=== PATIENT | female | born 2000 | race Caucasian/White ===

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

== ENCOUNTER 2022-02-24 13:59 | Outpatient (CLI) | payer MEDICAID ==
[2022-02-24 19:48] LABS: BASOPHILS % (AUTO) 0.4 %; EOSINOPHILS # (AUTO) 0.1 10^3/uL (0.0-0.7); EOSINOPHILS % (AUTO) 0.9 %; HCT - HEMATOCRIT 42.9 % (37.0-47.0); HGB - HEMOGLOBIN 12.8 g/dL (12.0-16.0); LYMPHOCYTES # (AUTO) 2.5 10^3/uL (1.5-3.5); LYMPHOCYTES % (AUTO) 36.2 %; MEAN CORPUSCULAR HEMOGLOBIN 26.6 pg (27.0-31.0); MEAN CORPUSCULAR HGB CONC 29.8 g/dL (32.0-36.0); MEAN CORPUSCULAR VOLUME 89.2 fL (81.0-99.0); MEAN PLATELET VOLUME 11.7 fL (7.9-10.8); MONOCYTES # (AUTO) 0.3 10^3/uL (0.0-1.0); MONOCYTES % (AUTO) 4.6 %; NEUTROPHILS % (AUTO) 57.8 %; PLT - PLATELET COUNT 227 10^3/uL (130-450); RED BLOOD COUNT 4.81 10^6/uL (4.20-5.40); RED CELL DISTRIBUTION WIDTH 11.9 % (12.0-15.0)
[2022-02-24 19:57] LABS: ALBUMIN 4.9 g/dL (3.2-5.5); ALBUMIN/GLOBULIN RATIO 1.8 (1.0-2.2); BILIRUBIN,TOTAL 0.8 mg/dL (0.2-1.0); CALCIUM 11.2 mg/dL (8.5-10.3); CREATININE 0.7 mg/dL (0.4-1.0); POTASSIUM 3.6 mmol/L (3.5-5.0); TOTAL PROTEIN 7.6 g/dL (6.7-8.2)
[2022-02-24 20:15] LABS: THYROID STIMULATING HORMONE 1.61 uIU/mL (0.34-5.60)
[2022-02-24 20:16] LABS: FREE T3 3.44 pg/mL (2.5-3.9)
[2022-02-24 20:17] LABS: FREE T4 (FREE THYROXINE) 0.63 ng/dL (0.58-1.64)
[2022-02-26 16:08] LABS: THYROGLOBULIN ANTIBODY <1.0 IU/mL (0.0-0.9); THYROID PEROXIDASE (TPO) AB <8 IU/mL (0-26)
== END 2022-02-24 14:00 | disposition home or self-care (01) ==
LOC: LAB.S 13:59
PROVIDERS: ATTEND Nurse Practitioner Family
DX: R89.9 Unspecified abnormal finding in specimens from other organs, systems and tissues (principal); D16.4 Benign neoplasm of bones of skull and face
CPT/HCPCS: 36415; 80053; 83970; 84439; 84443; 84481; 85025; 86376; 86800

== ENCOUNTER 2023-06-06 14:08 | Outpatient (CLI) | payer MEDICAID ==
--- NOTE | 2023-06-06 16:30 | XRAY Report ---
PROCEDURE: Lumbar Spine 4V INDICATIONS: VERTEBROGENIC LOW BACK PAIN TECHNIQUE: 5 views of the lumbar spine were acquired. COMPARISON: None. FINDINGS: Bones: 5 [id number]-vawykko vertebrae are present. There is trace retrolisthesis L4-5. Otherwise marcin l alignment. Oblique images demonstrate no pars defects. No vertebral body compression fractures. N o suspicious bony lesions. Soft tissues: Overlying bowel gas pattern is normal. Mildly increased stool quantity. No suspicious soft tissue calcifications. IMPRESSION: Mild L4-5 retrolisthesis, uncertain clinical significance. Reviewed by: Irma Villar MD on 06/06/2023 4:28 PM PST Approved by: Irma Villar MD on 06/06/2023 4:28 PM PST Station ID: [id number]
--- NOTE | 2023-06-06 18:10 | XRAY Report ---
PROCEDURE: Cervical Spine 2-3V INDICATIONS: NECK PAIN TECHNIQUE: 3 views of the cervical spine were acquired. COMPARISON: None. FINDINGS: Bones: No acute fractures or dislocations to the T1 level. Congenital fusion of the C2 and C3 bruno tebral bodies and posterior elements is noted. The lateral masses of C1 appear intact on the odontoid view. No suspicious bony lesions. Soft tissues: No prevertebral soft tissue swelling. IMPRESSION: 1.No displaced fracture or traumatic subluxation. 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 Reviewed by: Jerald Muse MD on 06/06/2023 6:09 PM PST Approved by: Jerald Muse MD on 06/06/2023 6:09 PM PST Station ID: [id number]
[2023-06-06 19:41] LABS: BASOPHILS % (AUTO) 0.4 %; EOSINOPHILS # (AUTO) 0.1 10^3/uL (0.0-0.7); EOSINOPHILS % (AUTO) 1.5 %; HCT - HEMATOCRIT 45.2 % (37.0-47.0); HGB - HEMOGLOBIN 13.4 g/dL (12.0-16.0); LYMPHOCYTES # (AUTO) 1.8 10^3/uL (1.5-3.5); LYMPHOCYTES % (AUTO) 38.5 %; MEAN CORPUSCULAR HEMOGLOBIN 26.6 pg (27.0-31.0); MEAN CORPUSCULAR HGB CONC 29.6 g/dL (32.0-36.0); MEAN CORPUSCULAR VOLUME 89.9 fL (81.0-99.0); MONOCYTES # (AUTO) 0.3 10^3/uL (0.0-1.0); MONOCYTES % (AUTO) 5.3 %; NEUTROPHILS # (AUTO) 2.6 10^3/uL (1.5-6.6); NEUTROPHILS % (AUTO) 54.1 %; PLT - PLATELET COUNT 234 10^3/uL (130-450); RED BLOOD COUNT 5.03 10^6/uL (4.20-5.40); RED CELL DISTRIBUTION WIDTH 12.1 % (12.0-15.0); WHITE BLOOD COUNT 4.7 x10^3/uL (4.8-10.8)
[2023-06-06 19:59] LABS: % IRON SATURATION 57 % (20-50); ALBUMIN 4.4 g/dL (3.2-5.5); ALBUMIN/GLOBULIN RATIO 2.1 (1.0-2.2); ALKALINE PHOSPHATASE 50 IU/L (42-121); ALT ALANINE AMINOTRANSFERASE 8 IU/L (10-60); AST ASPARTATE AMINOTRANSFERASE 13 IU/L (10-42); BILIRUBIN,TOTAL 0.6 mg/dL (0.2-1.0); BUN - BLOOD UREA NITROGEN 9 mg/dL (6-20); CALCIUM 9.4 mg/dL (8.5-10.3); CARBON DIOXIDE - CO2 28 mmol/L (21-32); CHLORIDE 106 mmol/L (101-111); CREATININE 0.7 mg/dL (0.6-1.3); CRP - C-REACTIVE PROTEIN < 0.5 mg/dL (<0.5); GFR - MDRD 107 (>89); GLUCOSE 93 mg/dL (74-104); IRON 190 ug/dL (50-212); POTASSIUM 3.8 mmol/L (3.5-4.5); SODIUM 139 mmol/L (135-145); TOTAL IRON BINDING CAPACITY 335 ug/dL (250-450); TOTAL PROTEIN 6.5 g/dL (6.4-8.9); TRANSFERRIN 239 mg/dL (203-362)
[2023-06-06 20:06] LABS: RHEUMATOID FACTOR NEGATIVE (Negative)
[2023-06-06 20:18] LABS: FERRITIN 18.2 ng/mL (11.0-306.8)
[2023-06-06 22:08] LABS: ESTIMATED AVERAGE GLUCOSE 94 mg/dL (70-100); HEMOGLOBIN A1c% 4.9 % (4.27-6.07)
[2023-06-08 08:10] LABS: CALCIUM IONIZED SERUM 4.9 mg/dL (4.5-5.6); VITAMIN D 25-HYDROXY 20.5 ng/mL (30.0-100.0)
[2023-06-08 19:07] LABS: ANTI-DNA (DS) AB QN 3 IU/mL (0-9)
[2023-06-09 17:08] LABS: ANTINUCLEAR ANTIBODIES IFA Positive (.)
== END 2023-06-06 14:09 | disposition home or self-care (01) ==
LOC: DI.S 14:08
PROVIDERS: ATTEND Internal Medicine
DX: M43.16 Spondylolisthesis, lumbar region (principal); D35.1 Benign neoplasm of parathyroid gland; R68.89 Other general symptoms and signs; Z83.2 Family history of diseases of the blood and blood-forming organs and certain disorders involving the immune mechanism; Q76.49 Other congenital malformations of spine, not associated with scoliosis
CPT/HCPCS: 36415; 80053; 82306; 82330; 82728; 83036; 83540; 84466; 85025; 86038; 86140; 86225; 86430

== ENCOUNTER 2023-07-27 13:53 | Outpatient (CLI) | payer MEDICAID ==
[2023-07-27 19:50] LABS: BASOPHILS % (AUTO) 0.2 %; EOSINOPHILS % (AUTO) 0.7 %; HCT - HEMATOCRIT 43.6 % (37.0-47.0); HGB - HEMOGLOBIN 13.6 g/dL (12.0-16.0); LYMPHOCYTES % (AUTO) 35.9 %; MEAN CORPUSCULAR HEMOGLOBIN 27.9 pg (27.0-31.0); MEAN CORPUSCULAR HGB CONC 31.2 g/dL (32.0-36.0); MEAN CORPUSCULAR VOLUME 89.5 fL (81.0-99.0); MONOCYTES # (AUTO) 0.3 10^3/uL (0.0-1.0); MONOCYTES % (AUTO) 5.6 %; NEUTROPHILS # (AUTO) 3.2 10^3/uL (1.5-6.6); NEUTROPHILS % (AUTO) 57.4 %; PLT - PLATELET COUNT 226 10^3/uL (130-450); RED BLOOD COUNT 4.87 10^6/uL (4.20-5.40); WHITE BLOOD COUNT 5.5 x10^3/uL (4.8-10.8)
[2023-07-27 20:21] LABS: FERRITIN 25.4 ng/mL (11.0-306.8)
== END 2023-07-27 13:54 | disposition home or self-care (01) ==
LOC: LAB.S 13:53
PROVIDERS: ATTEND Internal Medicine
DX: D35.1 Benign neoplasm of parathyroid gland (principal); R79.89 Other specified abnormal findings of blood chemistry
CPT/HCPCS: 36415; 82728; 83540; 84466; 85025